=== PATIENT | female | born 1950 | race Two or more races ===

== ENCOUNTER 2025-03-27 15:40 | Emergency (ER) | payer MEDICARE, MEDICAID, SELFPAY ==
[2025-03-27 15:48] VITALS: BP 167/84; PULSE 84; RESP 18; TEMP 36.9; O2SAT 97; BMI 32.1
--- NOTE | 2025-03-27 16:20 | PD.EDRME ---
Rapid Medical Screening Exam RME Arrival date/time: 03/27/25 15:40 This is a 74-year-old female here in clinic with complaints of hypoglycemic episodes intermittently for 1 week. I have greeted and performed a focused initial assessment of this patient. Initial appropriate labs ordered at this time. A comprehensive ED assessment and evaluation of the patient and analysis of all test and completion of medical decision making process will be conducted by additional ED provider. Chief Complaint: Extremity Problem,Nontraumatic Time Seen by Provider: 03/27/25 15:54 Vital signs: Vital Signs Temperature 98.5 F 03/27/25 15:48 Pulse Rate 84 03/27/25 15:48 Respiratory Rate 18 03/27/25 15:48 Blood Pressure 167/84 H 03/27/25 15:48 Pulse Oximetry (%) 97 03/27/25 15:48 Oxygen Delivery Method Room Air 03/27/25 15:48
[2025-03-27 17:02] LABS: Basophils # (Auto) 0.1 Thou/mm3 (0.0-0.2); Basophils % (Auto) 1 % (0-2.5); Eosinophils # (Auto) 0.6 Thou/mm3 (0.0-0.5); Eosinophils % (Auto) 4 % (0-10); Hematocrit 37.3 % (36.0-46.0); Hemoglobin 12.3 g/dL (12.0-16.0); Immature Granulocytes Auto 0.09 Thou/mm3 (0.00-0.00); Lymphocytes # (Auto) 5.0 Thou/mm3 (1.0-4.8); Lymphocytes % (Auto) 40 % (10-50); Mean Corpuscular HGB Conc 33.0 g/dl (31.0-37.0); Mean Corpuscular Hemoglobin 30.2 pg (25.0-35.0); Mean Corpuscular Volume 92 fL (80-100); Monocytes # (Auto) 0.9 Thou/mm3 (0.0-0.8); Monocytes % (Auto) 7 % (0-12); Neutrophils # (Auto) 6.0 Thou/mm3 (1.8-7.7); Neutrophils % (Auto) 48 % (37-80); Nucleated Red Blood Cell # 0.00 Thou/mm3 (0.00-0.00); Nucleated Red Blood Cell % 0 /100 WBC (0); Platelet Count 331 Thou/mm3 (140-440); RDW Standard Deviation 44.9 fL (36.4-46.3); Red Blood Count 4.07 Miln/mm3 (4.00-5.20); White Blood Count 12.6 Thou/mm3 (3.6-11.0)
[2025-03-27 17:05] LABS: Collection Type, Urine Clean Catch
[2025-03-27 17:11] LABS: INR 1.0 (0.9-1.3); Prothrombin Time 10.5 Seconds (9.0-12.2)
[2025-03-27 17:16] LABS: Alanine Aminotransferase 34 U/L (10-49); Albumin, Serum 4.3 gm/dL (3.4-4.8); Albumin/Globulin Ratio 1.5 (1.2-2.2); Alkaline Phosphatase 85 U/L (46-116); Anion Gap 12 (7-16); Aspartate Amino Transferase 38 U/L (0-34); BUN/Creatinine Ratio 16 Ratio (12-20); Bilirubin,Total 0.2 mg/dL (0.3-1.2); Blood Urea Nitrogen 14 mg/dL (9-23); Calcium 9.4 mg/dL (8.3-10.6); Calcium (Corrected) 9.4 mg/dL (8.5-10.1); Carbon Dioxide 25.9 mMol/L (20.0-31.0); Chloride 100 mMol/L (98-107); Creatinine (Component) 0.9 mg/dL (0.6-1.3); Estimated Creatinine Clearance 50.0 mL/min (>60); Globulin 2.9 gm/dL (2.3-3.5); Glucose 224 mg/dL (74-106); Glucose Estimated Average 183 mg/dL (80-131); Hemoglobin A1C 8.0 % Hgb (4.8-6.0); Lipase 23 U/L (12-53); Magnesium 1.2 mg/dL (1.6-2.6); Osmolality,Calculated 283 (275-295); Potassium 4.1 mMol/L (3.4-5.1); Sodium 138 mMol/L (136-145); Total Protein 7.2 gm/dL (5.7-8.2); Troponin I < 0.020 ng/mL (0.0-0.045); eGFR > 60 See Note
[2025-03-27 17:26] LABS: Bilirubin,Urine Negative (Negative); Blood,Urine Negative (Negative); Color,Urine Yellow (Lt Yel-Yel); Glucose, Urine Trace (Negative); Hyaline Casts,Urine < 1 /hpf (0-1); Ketones,Urine 1+ (Negative); Leukocyte Esterase,Urine Positive (Negative); Nitrite,Urine Negative (Negative); PH,Urine 5.5 (5.0-7.0); Protein,Urine 1+ (Neg - Trace); RBC,Urine 7 /hpf (0-3); Specific Gravity,Urine 1.032 (1.001-1.035); Squamous Epithelial Cell,Urine 12 /hpf (0-5); Transitional Epi Cells,Urine 2 /hpf (0-5); Urobilinogen,Urine 2.0 mg/dL (0.0-1.0); WBC,Urine 15 /hpf (0-5)
[2025-03-27 17:27] LABS: Clarity,Urine Hazy (Clear/Hazy)
[2025-03-27 18:27] VITALS: BP 179/92; PULSE 81; RESP 18; TEMP 36.8; O2SAT 96
[2025-03-27] MEDS: cefTRIAXone/D5w 1gm IV premix 1 GM/50 ML BAG IV (18:53)
--- NOTE | 2025-03-27 18:55 | XR_ITS ---
Examination: CT abdomen with intravenous contrast CT pelvis with intravenous contrast 2-D coronal reconstructions 2-D sagittal reconstructions Date and time of exam:March 27, 2025 1950 hours Indications: Left flank pain today CTDI: vol (mGy) 9.94 DLP: (mGycm) 538 Technique: Multiple axial sections of the abdomen and pelvis have been obtained. 64 slice high-resolution scanner used. 3 mm axial sections have been obtained, post intravenous injection of 60 cc Isovue 370 2-D sagittal, coronal reconstructions obtained. Low dose protocols were performed. One or more of the following dose reduction techniques were used; automated exposure control, adjustment of the mA and/or KV according to patient size, use of iterative reconstruction technique. Findings: No focal liver or splenic lesions No gallstones No pancreatic or adrenal mass Perinephric stranding with mild wall thickening of the pelvicalyceal systems No renal or ureteral calculi, no hydronephrosis Aorta normal size Normal appendix Colonic diverticulosis Atrophic uterus No bladder mass or bladder calculi Fat-containing inguinal hernias IMPRESSION: Urinary tract infection pattern No renal or ureteral calculi, no hydronephrosis Normal appendix
--- NOTE | 2025-03-27 18:56 | PD.EDADULT ---
ED General RME/HPI General Chief complaint: Extremity Problem,Nontraumatic Stated complaint: Sugar is dropping, left hip pain Time Seen by Provider: 03/27/25 15:54 Arrival date/time: 03/27/25 15:40 RME / HPI RME / HPI narrative: 74-year-old female patient with significant history of hypertension, diabetes mellitus, came in for evaluation regarding left flank pain. Patient is been having left flank pain for several days, radiating to the lower leg. Patient also complained that her sugar is dropping usually drops to 55, drink orange juice and come back again. Also complaining of generalized body weakness. Patient is currently taking metformin, Januvia, and insulin. Patient denies any other complaints. No medication was taken prior to arrival. Related Data Home Medications ?Medication ?Instructions ?Recorded ?Confirmed OMEGA-3/DHA/EPA/FISH OIL (FISH OIL 1 ea PO BID ##0 11/11/13 07/29/19 1,000 MG SOFTGEL) glipizide 10 mg tablet 20 mg PO QDAY ##0 11/11/13 07/29/19 lovastatin 20 mg tablet 20 mg PO QDAY ##0 11/11/13 07/29/19 Benazepril Hcl 1 tab PO QDAY ##90 05/11/17 07/29/19 aspirin 81 mg chewable tablet 81 mg PO QDAY ##0 05/11/17 07/29/19 gemfibrozil 600 mg tablet (Lopid) 600 mg PO BID #0 tabs 05/11/17 07/29/19 glipizide 10 mg tablet 10 mg PO HS #0 tabs 05/11/17 07/29/19 metformin 1,000 mg tablet 1,000 mg PO BIDPC #0 tabs 05/11/17 07/29/19 (Glucophage) sitagliptin phosphate 100 mg 100 mg PO QDAY #0 tabs 05/11/17 07/29/19 tablet (Januvia) Previous Rx's ?Medication ?Instructions ?Recorded ibuprofen 600 mg tablet 600 mg PO Q6HR PRN PAIN #20 tabs 05/11/17 acetaminophen 300 mg-codeine 30 mg 1 tab PO Q6H PRN pain #14 tabs 07/29/19 tablet (Tylenol-Codeine #3) acetaminophen 500 mg tablet 500 mg PO Q6H PRN pain #30 tabs 07/29/19 (Acetaminophen Extra Strength) ibuprofen 600 mg tablet 600 mg PO Q6H PRN pain #30 tabs 07/29/19 azithromycin 250 mg tablet See Rx Instructions PO .COMPLEX #6 07/29/20 (Zithromax Z-Juan Miguel) tabs cefuroxime axetil 500 mg tablet 500 mg PO BID #14 tabs 03/27/25 Allergies Allergy/AdvReac Type Severity Reaction Status Date / Time No Known Allergies Allergy Verified 03/27/25 15:45 Review of Systems Review of Systems Narrative Review of Systems: Review of system reviewed and within normal limits except mentioned in HPI ED Exam Narrative Physical exam: VITAL SIGNS: Reviewed. GENERAL APPEARANCE: Alert and interactive, follows commands, no acute distress, HEAD AND FACE: Non-traumatic. ENT: PERRL, pink conjunctivitis, eyelid no trauma, Mucous membrane moist. NECK: Supple, nontender, no nuchal rigidity. CHEST: No tenderness, no crepitus, no paradoxical movement, no retractions. LUNGS: Clear, well ventilated, symmetric, no rales, no wheezing, no ronchi, no stridor, good breath sounds bilaterally. HEART: Regular rate, regular rhythm, no murmur, no gallops. ABDOMEN: Soft, positive bowel sounds, nondistended, no guarding, nontender, no rebound, no masses, left flank tenderness RECTAL: Deferred. GENITAL: Deferred. NEUROLOGICAL: Gross motor function intact sensory function intact, Appropriate for age. MUSCULOSKELETAL: low back nontender, full range of motion. EXTREMITIES: Nontender, full range of motion. SKIN: Color pink, dry, no rash, no lacerations, no abrasions, no contusions. LYMPHATICS: Deferred. Course Quality Measures none Orders Category Date Time Status CT Screening NOW Care 03/27/25 18:55 Active Insert IV NOW Care 03/27/25 18:[address] abdomen pelvis w con Stat Exams 03/27/25 18:55 Completed CBC Stat Lab 03/27/25 16:40 Completed Comprehensive Metabolic Panel Stat Lab 03/27/25 16:40 Completed Hemoglobin A1C [Glycohemoglobin w (eAG)] Stat Lab 03/27/25 16:40 Completed Lipase Stat Lab 03/27/25 16:40 Completed Magnesium Stat Lab 03/27/25 16:40 Completed Prothrombin Time with INR Stat Lab 03/27/25 16:40 Completed Troponin I Stat Lab 03/27/25 16:40 Completed UA [Urinalysis] Stat Lab 03/27/25 16:54 Completed Magnesium Sulfate 2 GM Ivpb [Magnesium Sulfate Ivpb] Med 03/27/25 17:57 Discontinued 2 gm in 50 ml IV X1 Ringers Lactated 1000 ml [Lactated Ringers] 1,000 ml Med 03/27/25 17:57 Discontinued IV 999 mls/hr cefTRIAXone/D5w 1gm IV premix [Rocephin/D5w 1gm IV Med 03/27/25 17:56 Discontinued premix] 1 gm in 50 ml IV X1 hydrALAZINE INJ [Apresoline Inj] Med 03/27/25 18:55 Discontinued 20 mg IVP X1 ONE Vital Signs Vital signs: Vital Signs Temperature 98.5 F 03/27/25 15:48 Pulse Rate 84 03/27/25 15:48 Respiratory Rate 18 03/27/25 15:48 Blood Pressure 167/84 H 03/27/25 15:48 Pulse Oximetry (%) 97 03/27/25 15:48 Oxygen Delivery Method Room Air 03/27/25 15:48 Discharge Plan Plan Patient Disposition: HOME (Self Care) Discharge Disposition comment: stable Prescriptions/Referrals Prescriptions/Med Rec: New cefuroxime axetil 500 mg tablet 500 mg PO BID Qty: 14 0RF No Action glipizide 10 MG tablet 20 mg PO QDAY Qty: 0 lovastatin 20 MG tablet 20 mg PO QDAY Qty: 0 OMEGA-3/DHA/EPA/FISH OIL (FISH OIL 1,000 MG SOFTGEL) 1 EACH capsule 1 ea PO BID Qty: 0 glipizide 10 MG tablet 10 mg PO HS Qty: 0 Benazepril Hcl 40 MG tablet 1 tab PO QDAY Qty: 90 metformin [Glucophage] 1,000 MG tablet 1,000 mg PO BIDPC Qty: 0 sitagliptin phosphate [Januvia] 100 MG tablet 100 mg PO QDAY Qty: 0 gemfibrozil [Lopid] 600 MG tablet 600 mg PO BID Qty: 0 aspirin 81 MG tablet,chewable 81 mg PO QDAY Qty: 0 ibuprofen 600 MG tablet 600 mg PO Q6HR PRN (Reason: PAIN) Qty: 20 0RF ibuprofen 600 mg tablet 600 mg PO Q6H PRN (Reason: pain) Qty: 30 0RF acetaminophen [Acetaminophen Extra Strength] 500 mg tablet 500 mg PO Q6H PRN (Reason: pain) Qty: 30 0RF acetaminophen-codeine [Tylenol-Codeine #3] 300-30 mg tablet 1 tab PO Q6H PRN (Reason: pain) Qty: 14 0RF azithromycin [Zithromax Z-Juan Miguel] 250 mg tablet See Rx Instructions .ROUTE .COMPLEX Qty: 6 0RF Rx Instructions: take 500 mg today (day 1), then 250 mg for 4 days (days 2-5) Referrals: Luis Kenney PA-C [Primary Care Provider] - In 1 week Problem List Clinical Impression: Urinary tract infection, Labile blood glucose Patient/Caregiver Discharge Instructions Discharge Activity: activity as tolerated Education Materials: Understanding Urinary Tract ... Additional Instructions: Thank you for the opportunity for serving you today. You are stable for discharged . You are advised to: Follow-up with your PCP in 1 to 2 days Return to ED for worsening of symptoms Increase oral fluids Take medication as prescribed Talk to your doctor about your blood sugar medications. For now eat 3 meals a day with snacks in between Print Language: Vietnamese Stand Alone Forms: Tymphany Award Info., Patient Portal Info Letter BENITO/SERGE Supervising Physician PA/SERGE Supervising Physician: MD Dorene [facility] Narrative MDM hospital course: 74-year-old female patient with significant history of hypertension, diabetes mellitus, came in for evaluation regarding left flank pain. Patient is been having left flank pain for several days, radiating to the lower leg. Patient also complained that her sugar is dropping usually drops to 55, drink orange juice and come back again. Also complaining of generalized body weakness. Patient is currently taking metformin, Januvia, and insulin. Patient denies any other complaints. No medication was taken prior to arrival. CBC showed WBC count of 12.6 slight leukocytosis, urinalysis positive for UTI patient blood sugar was noted to be [address] scan of the abdomen pelvis came back with Urinary tract infection pattern No renal or ureteral calculi, no hydronephrosis Normal appendix Patient received IV fluids, IV ceftriaxone, hydralazine, magnesium sulfate. Patient verbalized significant improvement of symptoms. Medical Records Reviewed None Meds/Rx Considered, not Ordered None Medication Administration(s) Medication Administration History Discontinued Medications Hydralazine HCl (Hydralazine Inj 20 Mg/Ml Vial) 20 mg IVP X1 ONE Stop: 03/27/25 18:56 Last Admin: 03/27/25 19:18 Dose: 20 mg Documented By: DT Ceftriaxone Sodium/Dextrose (Rocephin/D5w 1gm Iv Premix) 1 gm in 50 mls @ 100 mls/hr IV X1 ONE Stop: 03/27/25 18:25 Last Infusion: 03/27/25 19:23 Dose: Infused Documented By: Admin: 03/27/25 18:53 Dose: 100 mls/hr Documented By: DB Lactated Ringer's (Lactated Ringers) 1,000 mls @ 999 mls/hr IV .Q1H1M ONE Stop: 03/27/25 18:57 Last Infusion: 03/27/25 20:33 Dose: Infused Documented By: Admin: 03/27/25 19:22 Dose: 999 mls/hr Documented By: DT Magnesium Sulfate (Magnesium Sulfate Ivpb) 2 gm in 50 mls @ 25 mls/hr IV X1 ONE Stop: 03/27/25 19:56 Last Infusion: 03/27/25 21:22 Dose: Infused Documented By: Admin: 03/27/25 19:22 Dose: 25 mls/hr Documented By: DT Magnesium sulfate, IV fluids depression IV hydralazine Diagnosis Differential diagnosis: Flank pain renal colic, UTI, labile blood glucose Most likely dx, and/or detailed dx discussion: UTI, labile blood close Dispositon Disposition: Discharge Home
[2025-03-27 19:18] VITALS: BP 181/108; PULSE 72
[2025-03-27] MEDS: hydrALAZINE INJ 20 MG/ML VIAL IVP (19:18)
[2025-03-27] MEDS: Magnesium Sulfate 2 GM Ivpb 2 GM/50 ML BAG IV (19:22)
[2025-03-27] MEDS: RINGERS LACTATED 1000 ML 1,000 ML 999 ML IV (19:22)
[2025-03-27 20:16] VITALS: BP 181/99; PULSE 95; RESP 14; TEMP 37; O2SAT 99
[2025-03-27 21:31] VITALS: BP 170/90; PULSE 100; RESP 14; TEMP 36.7; O2SAT 99
== END 2025-03-27 21:51 | disposition home or self-care (01) ==
PROVIDERS: Nurse Practitioner Primary Care; Emergency Provider Family Medicine; PCP Physician Assistant
DX: N39.0 Urinary tract infection, site not specified (principal); E11.649 Type 2 diabetes mellitus with hypoglycemia without coma; Z79.84 Long term (current) use of oral hypoglycemic drugs
CPT/HCPCS: 36415; 74177; 80053; 81001; 83036; 83690; 83735; 84484; 85025; 85610; 96365; 96366; 96375; 99283; A4649; J0360; J0696; J3475; J7120; Q9967

== ENCOUNTER 2025-06-20 12:02 | Emergency (ER) | payer MEDICARE, MEDICAID, SELFPAY ==
[2025-06-20 13:00] VITALS: BP 185/110; BP 199/112; PULSE 74; RESP 19; TEMP 36.9; O2SAT 97; BMI 27.8
--- NOTE | 2025-06-20 13:24 | PD.EDRME ---
Rapid Medical Screening Exam RME Arrival date/time: 06/20/25 12:02 Chief Complaint: Abdominal Pain Time Seen by Provider: 06/20/25 13:15 Vital signs: Vital Signs Temperature 98.5 F 06/20/25 13:00 Pulse Rate 74 06/20/25 13:00 Respiratory Rate 19 06/20/25 13:00 Blood Pressure 199/112 H 06/20/25 13:00 Pulse Oximetry (%) 97 06/20/25 13:00 Oxygen Delivery Method Room Air 06/20/25 13:00 RME Narrative: 74-year-old female presents to the ER complaining of left-sided abdominal pain which radiates to her back. I briefly performed a screening evaluation to initiate work-up and expedite care. Complete history, physical exam, and plan of care is deferred to the provider in the main ED.
--- NOTE | 2025-06-20 13:25 | XR_ITS ---
Examination: CTA chest, with intravenous contrast. CTA abdomen, with intravenous contrast. CTA pelvis, with intravenous contrast. 2-D sagittal and coronal reconstructions. 3-D reconstructions. Date and time of exam: June 20, 2025, 1508 hours, comparison March 27, 2025 INDICATIONS: Chest pain abdominal pain radiating to the back today CTDI vol (mgy) 10.6 DLP (MGycm) 681 Technique: Multiple CTA images, 2.0 mm slice thickness, obtained chest, abdomen, pelvis, with the high-resolution 64 slice scanner. 100 cc Isovue-370 is administered intravenously. Sagittal and coronal 2-D reconstructions are obtained. 3-D reconstructions, angiographic images are obtained. 3-D postprocessing, including vascular maximum intensity projections. Low dose protocols were performed. One or more of the following dose reduction techniques were used; automated exposure control, adjustment of the mA and/or KV according to patient size, use of iterative reconstruction technique. Findings: 15 mm left thyroid nodule No thoracic aortic aneurysmal dilatation or dissection No pulmonary artery filling defects. Mild enlargement left atrium left ventricle No pneumonia, pulmonary edema or pleural disease 10 mm nodule with calcification in the right upper lobe No visualized liver or splenic lesion, liver is irregular in contour No gallstones No pancreatic mass No common bile duct stones No renal or ureteral calculi, no hydronephrosis No abdominal aortic aneurysmal dilatation Normal appendix Atrophic uterus No bladder mass or bladder calculi Prominent osteopenia IMPRESSION: No thoracic or abdominal aortic aneurysmal dilatation or dissection Negative for pulmonary artery emboli. No pneumonia or pulmonary edema. No acute process in the abdomen or pelvis. Gallbladder is distended, consider hepatobiliary sonography follow-up
--- NOTE | 2025-06-20 13:25 | XR_ITS ---
EXAMINATION: PA chest single view TECHNIQUE: Upright PA chest single view Date and time: June 20, 2025, 1359 hours INDICATIONS: Epigastric pain chest pain beginning 2 days ago. FINDINGS: Normal heart size The lungs are clear. The osseous structures are intact IMPRESSION: No pneumonia or pulmonary edema
[2025-06-20 13:54] LABS: Basophils # (Auto) 0.1 Thou/mm3 (0.0-0.2); Basophils % (Auto) 1 % (0-2.5); Eosinophils # (Auto) 0.2 Thou/mm3 (0.0-0.5); Eosinophils % (Auto) 2 % (0-10); Hematocrit 38.7 % (36.0-46.0); Hemoglobin 13.5 g/dL (12.0-16.0); Immature Granulocytes Auto 0.15 Thou/mm3 (0.00-0.00); Lymphocytes # (Auto) 5.1 Thou/mm3 (1.0-4.8); Lymphocytes % (Auto) 36 % (10-50); Mean Corpuscular HGB Conc 34.9 g/dl (31.0-37.0); Mean Corpuscular Hemoglobin 30.5 pg (25.0-35.0); Mean Corpuscular Volume 87 fL (80-100); Monocytes # (Auto) 0.8 Thou/mm3 (0.0-0.8); Monocytes % (Auto) 6 % (0-12); Neutrophils # (Auto) 7.8 Thou/mm3 (1.8-7.7); Neutrophils % (Auto) 55 % (37-80); Nucleated Red Blood Cell # 0.00 Thou/mm3 (0.00-0.00); Nucleated Red Blood Cell % 0 /100 WBC (0); Platelet Count 340 Thou/mm3 (140-440); RDW Standard Deviation 41.3 fL (36.4-46.3); Red Blood Count 4.43 Miln/mm3 (4.00-5.20); White Blood Count 14.2 Thou/mm3 (3.6-11.0)
[2025-06-20 14:06] LABS: Collection Type, Urine Voided
[2025-06-20 14:18] LABS: Bilirubin,Urine Negative (Negative); Blood,Urine Trace (Negative); Clarity,Urine Clear (Clear/Hazy); Color,Urine Lt-Yellow (Lt Yel-Yel); Culture Indicated,Urine Not Indicated; Glucose, Urine Negative (Negative); Ketones,Urine Negative (Negative); Leukocyte Esterase,Urine Positive (Negative); Nitrite,Urine Negative (Negative); PH,Urine 6.0 (5.0-7.0); Protein,Urine Negative (Neg - Trace); RBC,Urine 1 /hpf (0-3); Specific Gravity,Urine 1.009 (1.001-1.035); Squamous Epithelial Cell,Urine 1 /hpf (0-5); Urobilinogen,Urine Negative mg/dL (0.0-1.0); WBC,Urine 2 /hpf (0-5)
[2025-06-20 14:44] LABS: Alanine Aminotransferase 37 U/L (10-49); Albumin, Serum 4.7 gm/dL (3.4-4.8); Albumin/Globulin Ratio 1.6 (1.2-2.2); Alkaline Phosphatase 85 U/L (46-116); Anion Gap 12 (7-16); Aspartate Amino Transferase 37 U/L (0-34); BUN/Creatinine Ratio 16 Ratio (12-20); Bilirubin,Total 0.3 mg/dL (0.3-1.2); Blood Urea Nitrogen 13 mg/dL (9-23); Calcium 9.3 mg/dL (8.3-10.6); Calcium (Corrected) 9.3 mg/dL (8.5-10.1); Carbon Dioxide 23.9 mMol/L (20.0-31.0); Chloride 102 mMol/L (98-107); Creatinine (Component) 0.8 mg/dL (0.6-1.3); Estimated Creatinine Clearance 60.9 mL/min (>60); Globulin 2.9 gm/dL (2.3-3.5); Glucose 132 mg/dL (74-106); Lipase 30 U/L (12-53); Osmolality,Calculated 277 (275-295); Potassium 3.9 mMol/L (3.4-5.1); Sodium 138 mMol/L (136-145); Total Protein 7.6 gm/dL (5.7-8.2); Troponin I < 0.002 ng/mL (0.0-0.045); eGFR > 60 See Note
--- NOTE | 2025-06-20 17:10 | PD.EDABDPN ---
ED Abdominal Pain RME/HPI General Chief Complaint: Abdominal Pain Stated complaint: SHARP PAIN LLQ ABD STARTING AT 01:00 Time seen by provider: 06/20/25 13:15 Arrival date/time: 06/20/25 12:02 RME / HPI RME / HPI narrative: 74-year-old female presents to the ER complaining of left-sided abdominal pain which radiates to her back which started at 1 pm today. Denies N/V/D, dysuria, hematuria, trauma, fever, SOB, CP. Related Data Home Medications ?Medication ?Instructions ?Recorded ?Confirmed OMEGA-3/DHA/EPA/FISH OIL (FISH OIL 1 ea PO BID ##0 11/11/13 07/29/19 1,000 MG SOFTGEL) glipizide 10 mg tablet 20 mg PO QDAY ##0 11/11/13 07/29/19 lovastatin 20 mg tablet 20 mg PO QDAY ##0 11/11/13 07/29/19 Benazepril Hcl 1 tab PO QDAY ##90 05/11/17 07/29/19 aspirin 81 mg chewable tablet 81 mg PO QDAY ##0 05/11/17 07/29/19 gemfibrozil 600 mg tablet (Lopid) 600 mg PO BID #0 tabs 05/11/17 07/29/19 glipizide 10 mg tablet 10 mg PO HS #0 tabs 05/11/17 07/29/19 metformin 1,000 mg tablet 1,000 mg PO BIDPC #0 tabs 05/11/17 07/29/19 (Glucophage) sitagliptin phosphate 100 mg 100 mg PO QDAY #0 tabs 05/11/17 07/29/19 tablet (Januvia) Previous Rx's ?Medication ?Instructions ?Recorded ibuprofen 600 mg tablet 600 mg PO Q6HR PRN PAIN #20 tabs 05/11/17 acetaminophen 300 mg-codeine 30 mg 1 tab PO Q6H PRN pain #14 tabs 07/29/19 tablet (Tylenol-Codeine #3) acetaminophen 500 mg tablet 500 mg PO Q6H PRN pain #30 tabs 07/29/19 (Acetaminophen Extra Strength) ibuprofen 600 mg tablet 600 mg PO Q6H PRN pain #30 tabs 07/29/19 azithromycin 250 mg tablet See Rx Instructions PO .COMPLEX #6 07/29/20 (Zithromax Z-Juan Miguel) tabs cefuroxime axetil 500 mg tablet 500 mg PO BID #14 tabs 03/27/25 cephalexin 500 mg capsule 500 mg PO QID 10 days #40 caps 06/20/25 Allergies Allergy/AdvReac Type Severity Reaction Status Date / Time No Known Allergies Allergy Verified 06/20/25 12:05 Review of Systems Review of Systems Systems Reviewed: All systems reviewed, normal except as documented ED Exam Narrative Physical exam: Constitutional: Patient alert and oriented. Well appearing. No acute distress. Not toxic appearing. Head: Normocephalic, atraumatic. Eyes: Periorbital regions bilaterally normal to inspection. Conjunctiva clear bilaterally. Sclera anicteric bilaterally. Pupils equal, round, reactive to light bilaterally. Extraocular movements intact bilaterally. Mouth/Throat: Mucous membranes moist. No stridor or muffled voice. No trismus. Handling secretions without difficulty. Airway widely patent. Neck: Supple. Trachea midline. No JVD. No nuchal rigidity. Normal range of motion. Respiratory: Normal effort. No accessory muscle use or respiratory distress. Lungs clear to auscultation bilaterally without rhonchi, wheezes, or crackles. Cardiovascular: RRR. Normal S1/S2. No murmurs or rubs. Radial pulses intact bilaterally. Abdomen: Soft. Non-distended. Positive left upper quadrant and left lower quadrant tenderness to palpation. No pulsatile mass. No guarding or rebound. Negative Hernadez?s sign. Negative McBurney?s point tenderness. Negative Rovsing?s. Back: No midline tenderness or step-offs. Positive left CVA and paralumbar tenderness to palpation. Upper Extremities: No gross deformities. Lower Extremities: No gross deformities. No edema or calf tenderness. Neuro: Speech normal. No gross motor or sensory deficits to upper or lower extremities bilaterally. GCS 15. CN II?XII grossly intact. Skin: Warm, dry, normal color. Psych: Normal affect. Cooperative. Normal insight. Course Course Course Narrative: Although this patient's blood pressure was out of the normal range on evaluation today, the patient does not have clinical evidence of acute end-organ injury. The patient has been counseled on the risks of poorly or uncontrolled blood pressure and advised of the importance of close follow-up within the next 3-4 days to confirm that this blood pressure elevation is the result of a chronic hypertensive condition and to have it treated if so. The patient has also been counseled to return immediately if any further symptoms develop. Quality Measures none Orders Category Date Time Status CT Screening NOW Care 06/20/25 13:26 Active EKG (ED ONLY) *Do not use* NOW Care 06/20/25 17:29 Completed Insert IV NOW Care 06/20/25 13:[address] angio chest abdomen pelvis Stat Exams 06/20/25 13:25 Completed EKG (ED Only) Stat Exams 06/20/25 17:29 Draft XR chest 1V Stat Exams 06/20/25 13:25 Completed CBC Stat Lab 06/20/25 13:34 Completed CMP [Comprehensive Metabolic Panel] Stat Lab 06/20/25 13:34 Completed Lipase Stat Lab 06/20/25 13:34 Completed Troponin I Stat Lab 06/20/25 13:34 Completed UA, C/S IF [Urinalysis, C/S if Indicated] Stat Lab 06/20/25 13:45 Completed Urine Culture Stat Lab 06/20/25 18:02 Ordered ACETAMINOPHEN w/COD 300-30 [Tylenol w/Cod #3] Med 06/20/25 18:00 Discontinued 1 tab PO X1 ONE Lidocaine 5% Patch Med 06/20/25 18:00 Discontinued 1 patch TOP X1 ONE Morphine* Inj Med 06/20/25 17:08 Discontinued 2 mg IVP X1 ONE Morphine* Inj Med 06/20/25 16:57 Discontinued 4 mg IM X1 ONE Ondansetron Inj [Zofran Inj] Med 06/20/25 16:57 Discontinued 4 mg IVP X1 ONE cefTRIAXone/D5w 1gm IV premix [Rocephin/D5w 1gm IV Med 06/20/25 18:09 Active premix] 1 gm in 50 ml IV X1 Reevaluation(s) Reevaluation #1: At the time of reassessment, the patient remains alert and oriented ?3 with GCS 15. Vitals are normal, pain is controlled, and the patient is tolerating oral intake without nausea or vomiting. The patient is agreeable to discharge and verbalizes understanding of the diagnosis, studies, treatment plan, medications (including side effects/precautions), and strict ER return precautions as discussed in the ED. All concerns were addressed, and the patient is comfortable with the plan. Time: 17:37 Vital Signs Vital signs: Vital Signs Temperature 98.5 F 06/20/25 13:00 Pulse Rate 74 06/20/25 13:00 Respiratory Rate 19 06/20/25 13:00 Blood Pressure 199/112 H 06/20/25 13:00 Pulse Oximetry (%) 97 06/20/25 13:00 Oxygen Delivery Method Room Air 06/20/25 13:00 Abdominal Pain MDM MDM Narrative MDM Narrative:: The patient presents with left sided thoracoabdominal pain without definite explanation found on evaluation today. The patient is clinically well appearing and stable. Symptoms are not suggestive of cardiac ischemia, pulmonary embolus, aortic dissection, or other serious etiology. These diagnoses have been considered and excluded clinically and with additional diagnostic studies as indicated. Nonetheless, it is understood by both the patient and provider that no clinical or diagnostic assessment can entirely exclude such diseases. Chest pain precautions have been given and the patient has been advised to return for worsening symptoms or any concerns. Patient is without complaints of incontinence, saddle anesthesias, leg weakness and pain is not consistent cauda equina syndrome, SEA, acute cord, or nerve root syndrome. Additionally pt without high risk features to suggest indication for advanced MRI imaging emergently. There are no signs of peritonitis or other life-threatening or serious etiology. Although CT scan is without acute urologic obstruction or hydronephrosis given location of pain I can not exclude an early/occult UTI as e/o of symptoms, risks and benefits of empiric tx discussed with pt who is requesting tx, she states that her symptoms are similar to her prior UTI upon further questioning at time of discharge. I considered admission; however, given negative work up and imaging, admission is not indicated. The patient appears stable for discharge and has been instructed to return for re-evaluation immediately if the symptoms worsen or change in any way. If the symptoms are not resolved in 24-48 hours, the patient is asked to get rechecked by their PMD or return to the ED. Patient data External records reviewed:: [facility] previous records Clinical information provided by:: patient and family Social determinants that could affect healthcare access:: none Patient has the following chronic illnesses:: Diabetes, UTI How is presenting disease/condition affected by chronic disease/condition?: exacerbated by Evaluation data The following diagnostics were reviewed and interpreted by me:: lab results and radiology exam(s) Lab and/or radiology exams considered but not ordered:: Labs and radiology considered, but not ordered as they were not clinically indicated at this time. Interpretation Summary: Urine dip concerning for leuks which are positive and trace blood however UA only 1 RBC, 2 WBCs and 1 squamous cell without bacteria. Additionally no nitrites. However can not exclude occult UTI, pending U culture. No prior U culture available. AST minimally elevated at 37, glucose minimally elevated 132 however no signs of acute hepatobiliary obstruction or acute renal failure Mild leukocytosis with white count of 14.2, absolute neutrophil number minimally elevated at 7.8, immature granulocytes minimally elevated 0.15 however no thrombocytopenia or severe anemia X-ray and CT chest abdomen pelvis with contrast without acute cardiopulmonary or intra-abdominal or pelvic abnormality. No dissection. EKG note notable for normal sinus rhythm 68. No ST elevation, no T wave inversions. Medications / Prescriptions Medications or Prescriptions considered but not ordered:: I considered prescription management (both outpatient prescriptions AND drug treatment in the ER) and decided that this was necessary and was prescribed as charted. Medication administrations:: Medication Administration History Ceftriaxone Sodium/Dextrose (Rocephin/D5w 1gm Iv Premix) 1 gm in 50 mls @ 100 mls/hr IV X1 ONE Stop: 06/20/25 18:38 Last Admin: 06/20/25 18:23 Dose: 100 mls/hr Documented By: GM Discontinued Medications Acetaminophen/Codeine Phosphate (Acetaminophen W/Cod 300-30 Tablet) 1 tab PO X1 ONE Stop: 06/20/25 18:01 Last Admin: 06/20/25 18:16 Dose: 1 tab Documented By: Lidocaine (Lidocaine 5% 1 Patch) 1 patch TOP X1 ONE Stop: 06/20/25 18:01 Last Admin: 06/20/25 18:21 Dose: 1 patch Documented By: GM Morphine Sulfate (Morphine Sulf Inj 4 Mg/Ml Vial) 4 mg IM X1 ONE Stop: 06/20/25 16:58 Last Admin: 06/20/25 18:23 Dose: Not Given Documented By: GM Non-Admin Reason: Discontinued Morphine Sulfate (Morphine Sulf Inj 4 Mg/Ml Vial) 2 mg IVP X1 ONE Stop: 06/20/25 17:09 Last Admin: 06/20/25 18:24 Dose: Not Given Documented By: GM Non-Admin Reason: Cancelled by Provider Ondansetron HCl (Ondansetron Inj 2 Mg/Ml Inj 2 Ml) 4 mg IVP X1 ONE; Protocol Stop: 06/20/25 16:58 Last Admin: 06/20/25 18:24 Dose: Not Given Documented By: GM Non-Admin Reason: Cancelled by Provider As noted Consultations Consultation(s) initiated? (list below): No Diagnosis Differential diagnosis abdominal pain: abdominal pain, diverticulitis and other Most likely diagnosis given after review of the tests above:: Undifferentiated left flank pain Admission Indicated Admission indicated?: not indicated Admission Request Was there a request for admission?: No Disposition Plan Disposition Plan: Discharge Discharge Attestation Discharge Attestation: The patient and all family members were given an opportunity to ask questions and understood the discharge instructions. Discharge instructions specifically effects, indications for sooner follow up or return to the emergency department, and the expected course of current diagnosis. Patient condition: Stable Discharge Plan Plan Patient Disposition: HOME (Self Care) Patient condition on transfer: Stable Prescriptions/Referrals Prescriptions/Med Rec: New cephalexin 500 mg capsule 500 mg PO QID 10 Days Qty: 40 0RF No Action glipizide 10 MG tablet 20 mg PO QDAY Qty: 0 lovastatin 20 MG tablet 20 mg PO QDAY Qty: 0 OMEGA-3/DHA/EPA/FISH OIL (FISH OIL 1,000 MG SOFTGEL) 1 EACH capsule 1 ea PO BID Qty: 0 glipizide 10 MG tablet 10 mg PO HS Qty: 0 Benazepril Hcl 40 MG tablet 1 tab PO QDAY Qty: 90 metformin [Glucophage] 1,000 MG tablet 1,000 mg PO BIDPC Qty: 0 sitagliptin phosphate [Januvia] 100 MG tablet 100 mg PO QDAY Qty: 0 gemfibrozil [Lopid] 600 MG tablet 600 mg PO BID Qty: 0 aspirin 81 MG tablet,chewable 81 mg PO QDAY Qty: 0 ibuprofen 600 MG tablet 600 mg PO Q6HR PRN (Reason: PAIN) Qty: 20 0RF ibuprofen 600 mg tablet 600 mg PO Q6H PRN (Reason: pain) Qty: 30 0RF acetaminophen [Acetaminophen Extra Strength] 500 mg tablet 500 mg PO Q6H PRN (Reason: pain) Qty: 30 0RF acetaminophen-codeine [Tylenol-Codeine #3] 300-30 mg tablet 1 tab PO Q6H PRN (Reason: pain) Qty: 14 0RF azithromycin [Zithromax Z-Juan Miguel] 250 mg tablet See Rx Instructions .ROUTE .COMPLEX Qty: 6 0RF Rx Instructions: take 500 mg today (day 1), then 250 mg for 4 days (days 2-5) cefuroxime axetil 500 mg tablet 500 mg PO BID Qty: 14 0RF Referrals: Luis Kenney PA-C [Primary Care Provider] - In 1 week Problem List Clinical Impression: Acute abdominal pain in left flank Patient/Caregiver Discharge Instructions Education Materials: ED Pain, Acute, Uncertain Cause Print Language: Croatian Stand Alone Forms: [facility] Award Info., Patient Portal Info Letter PA/CHAIN [employer] LO[employer] Supervising Physician PA/[employer] Supervising Physician: Dr. Salcido
--- NOTE | 2025-06-20 17:29 | EKG_ITS ---
[facility] Test Date: 2025-06-20 Pat Name: RICARDA HAMMOND Department: Room: - Gender: Female Counsellors: : 1950 Requested By: Davide Pickering Order Number: [id number] Reading MD: Davide Pickering Measurements Intervals [place] Rate: 68 P: -18 [place]: 179 QRS: 50 QRSD: 85 T: 37 QT: 392 QTc: 417 Interpretive Statements SINUS RHYTHM No previous ECG available for comparison /store/S0/[id number].pdf
[2025-06-20 17:57] VITALS: BP 176/77; PULSE 99; RESP 18; TEMP 37; O2SAT 96
[2025-06-20] MEDS: ACETAMINOPHEN w/COD 300-30 TABLET 1 TAB PO (18:16)
[2025-06-20] MEDS: LIDOCAINE 5% 1 PATCH TOP (18:21)
[2025-06-20] MEDS: cefTRIAXone/D5w 1gm IV premix 1 GM/50 ML BAG IV (18:23)
== END 2025-06-20 19:09 | disposition home or self-care (01) ==
PROVIDERS: Emergency Provider Physician Assistant; PCP Physician Assistant
DX: R10.A2 Flank pain, left side (principal)
CPT/HCPCS: 36415; 71045; 71275; 74174; 80053; 81001; 83690; 84484; 85025; 87086; 93005; 99283; A4649; J0696; J3490; Q9967; A9270